=== PATIENT | female | born 1995 | race Caucasian/White ===

== ENCOUNTER → 2020-02-12 | Outpatient (CLI) | payer OTHER | END | disposition home or self-care (01) | LOC: LABWHC1 16:46 | PROVIDERS: ATTEND Family Medicine | DX: R05 Cough (principal); R06.02 Shortness of breath; Z20.828 Contact with and (suspected) exposure to other viral communicable diseases | CPT/HCPCS: U0003; C9803 ==

== ENCOUNTER → 2021-08-25 | Outpatient (CLI) | payer OTHER ==
--- NOTE | 2021-08-25 12:47 | CONS ---
CONSULTATION DATE OF SERVICE: 08/25/2021 26-year-old lady has been evaluated in [facility] for significant excessive daytime sleepiness and snoring. HISTORY OF PRESENT ILLNESS SLEEP-WAKE EVALUATION: The patient reports significant excessive daytime sleepiness for many years. Two years ago, she was started on treatment with medications for depression and anxiety, but according to her again, she did feel sleepiness before starting medication. Several months ago, she was started on Adderall for treatment of ADHD and she feels better with medication with regarding her sleepiness. She still continued to feel significant sleepiness. [place] Sleepiness Scale in very high range of 16. Patient's sleep schedule from 11 p.m. until 8 a.m. on weekdays and from midnight until 10 or 11 am on weekends. No problems with falling asleep. No TV in bedroom. The patient sleeps on the side of stomach position. She has loud snoring. Usually she does not wake up from sleep. No history of hypnagogic hallucinations, sleep paralysis or cataplexy. Positive history of sweating during the sleep. In the morning, the patient wakes up tired, has difficulties to pay attention, falling asleep during the day, has problems with memory, concentration, irritability, depression, anxiety. Usually she does not take naps, but if she does see is seeing vivid dreams during naps. PAST MEDICAL HISTORY: Positive for depression, anxiety, ADHD. PAST SURGICAL HISTORY: Inflammatory lymph nodes have been removed from the back of her neck in 2007. MEDICATIONS: Abilify 5 mg once a day, Lexapro 30 mg once a day, Adderall XR 30 mg once a day. SOCIAL HISTORY: Alcohol consumption occasional. Smoking, quit. FAMILY HISTORY: Sleep apnea, snoring, cancer, emphysema. REVIEW OF SYSTEMS: Snoring and significant excessive daytime sleepiness. PHYSICAL EXAMINATION: GENERAL: lady without distress. BP 115/70, HR 84, RR 14, height 5 feet 1/2 inch, weight 206.8, body mass index 39.5, temperature 97.6. Oxygen saturation on room air 97%. Oropharynx: Low position of soft palate, Mallampati 3. Neck is wide 16 inches in circumference. Neck: Supple, no JVD. Thyroid is not palpable. LUNGS: Clear to percussion and to auscultation. Good air exchange. No wheezing or rhonchi. HEART: S1, S2 regular. No murmurs, gallops, or rubs. ABDOMEN: Slightly obese. Soft and nontender. Bowel sounds are present. No organomegaly appreciated. EXTREMITIES: No clubbing or cyanosis. TAB CUTTING MACHINE OPERATOR: Awake, alert, and oriented X3. Cranial nerves 2 to 7 intact. There is no fasciculation or atrophy. noted. No focal deficits observed. IMPRESSION: 1. Snoring, low position of soft palate, wide neck sleepiness, possible obstructive sleep apnea-hypopnea syndrome. 2. Significant excessive daytime sleepiness for many years with high [place] Sleepiness Scale of 16 while patient is on treatment with Adderall XR 30 mg a day indicate possibility of hypersomnia including narcolepsy without cataplexy. 3. History of depression. 4. History of anxiety. 5. History of attention deficit hyperactivity disorder. 6. Status post inflammatory lymph node removed from the back of the neck in 2007. PLAN: 1. Polysomnography for evaluation of patient breathing during sleep. If sleep study negative for obstructive sleep apnea, proceed with multiple sleep latency test. 2. CPAP/BiPAP titration if sleep study confirms obstructive sleep apnea-hypopnea syndrome. 3. Preferable position during sleep on the side. 4. No driving if patient feels any sleepiness. 5. I will see patient for follow up visit to explain results of testing and following plan. Thank you very much for referring this patient for consultation. Sincerely, Alejo Morin MD, PhD, FAASM Diplomat of [employer] Sleep Medicine Board of [place] [employer] Job Order Clerk of [facility] [place] MMODL / IJN: [id number] /
== END ==
LOC: SLEEP 10:32
PROVIDERS: ATTEND Internal Medicine
DX: G47.10 Hypersomnia, unspecified (principal); F32.A Depression, unspecified; F41.9 Anxiety disorder, unspecified; F90.9 Attention-deficit hyperactivity disorder, unspecified type; Z98.890 Other specified postprocedural states
CPT/HCPCS: 99211

== ENCOUNTER → 2021-10-21 | Outpatient (CLI) | payer OTHER ==
--- NOTE | 2021-10-21 12:17 | P.PN ---
Subjective DATE: 10/21/2021 FOLLOW UP VISIT. Patient returned to sleep center for follow-up visit to discuss results of sleep study and following plan. . I discussed is also sleep study with patient in details. Polysomnogram did not show significant abnormalities of respiration, normal oxygenation during the sleep. Some leg movements have been documented during REM sleep. Multiple sleep latency test on the following day confirmed sleepiness, mean sleep latency was short 6.7 minutes. No sleep onset REM periods have been documented. Patient continued to have symptoms of excessive daytime sleepiness. [place] sleepiness scale is 14. MEDICATIONS:1. Abilify 5 mg once a day 2. Lexapro 30 mg once a day 3. Adderall XR once a day During physical exam: GENERAL: A pleasant patient without any distress. VITAL SIGNS: BP 116/64, HR 85, RR 16 , weight 208.8, temperature 96.9, oxygen saturation at room air 97 . HEENT: PERRLA, EOMI. NECK: Supple. No JVD. LUNGS: Clear to percussion and to auscultation. Good air exchange. No wheezing or rhonchi. HEART: S1, S2 regular. ABDOMEN: Soft and nontender. EXTREMITIES: No clubbing or cyanosis. DRAFTER DETAIL: Awake, alert, and oriented x3. No focal deficit. Impressions: 1. No significant respiratory abnormalities have been documented during the sleep study. 2. Some leg movements have been documented during REM sleep. Differential diagnosis should include REM sleep behavioral disorder. 3. Multiple sleep latency test confirmed sleepiness. Mean sleep latency was short 6.7 minutes. No sleep onset REM periods have been documented. Differential diagnosis include idiopathic hypersomnia and narcolepsy without cataplexy.. 4. History of depression. 5. And history of anxiety. 6. Attention deficit hyperactivity disorder. Plan: 1. Patient is on treatment with Adderall XR 30 mg in the morning for ADHD. Patient continued to have sleepiness especially on afternoon time. Dose of Adderall should be adjusted slightly up possibly regular Adderall 20 mg twice a day. 2. Sleep hygiene with regular time in bed for at least 8 hours. 3. Daytime naps permitted 4. Precautions related to driving. No driving if feel any sleepiness. Patient is aware about civil and criminal liability for unsafe driving, promised to f ayselow recommendations. 5. Follow up visit in 4-6 months or earlier if patient has any problems. 6. Iron profile including ferritin level. If level of ferritin less then 50 ng/mL iron supplement will be recommended. Thank you very much for allowing me to participate in the management of your patient. Alejo Morin MD, PhD, FAASM. Diplomat of [place] [employer] [employer], Sleep Medicine Board by [place] [employer] Hydraulic Dredge Operator of [facility] [place]
== END ==
LOC: SLEEP 10:28
PROVIDERS: ATTEND Internal Medicine
DX: R40.0 Somnolence (principal); F32.A Depression, unspecified; F41.9 Anxiety disorder, unspecified; F90.9 Attention-deficit hyperactivity disorder, unspecified type; Z79.899 Other long term (current) drug therapy
CPT/HCPCS: 99212